=== PATIENT | female | born 1970 | race Caucasian/White ===

== ENCOUNTER 2021-02-06 11:17 | Emergency (ER) | payer OTHER, SELFPAY | END 2021-02-06 14:17 | disposition left against medical advice (07) | PROVIDERS: Emergency Provider Emergency Medicine; PCP Internal Medicine | DX: R68.89 Other general symptoms and signs (principal) ==

== ENCOUNTER 2021-02-07 08:40 | Outpatient (REF) | payer OTHER, SELFPAY ==
[2021-02-07 09:51] LABS: COVID-19 Test Positive (Negative); IDNOW Serial# 16C4AD1C
== END 2021-02-07 08:41 | disposition home or self-care (01) ==
LOC: HO.LAB 08:40
PROVIDERS: Visit Provider Internal Medicine
DX: Z20.822 Contact with and (suspected) exposure to COVID-19 (principal)
CPT/HCPCS: 36415; 87635; C9803

== ENCOUNTER 2022-03-14 08:53 | Emergency (ER) | payer OTHER, SELFPAY ==
--- NOTE | ~2022-03-14 | XR_ITS ---
EXAMINATION: XR CHEST CLINICAL INFORMATION: Cough, chest pain COMPARISON: X-ray 12/09/2017 TECHNIQUE: 2 views of the chest were obtained. FINDINGS: The cardiomediastinal silhouette is within normal limits. The lungs are well expanded. There are mild hazy opacities in the right lower lung. This could represent mild atelectasis or developing infiltrate. No dense consolidation otherwise. There is no edema, or effusion. No pneumothorax. No acute osseous abnormality. Thoracic spine degeneration XR/XR chest 2V IMPRESSION: Mild right basilar hazy opacity could represent atelectasis or developing infiltrate. Recommendation is for a follow-up chest series to be obtained following treatment and/or resolution of symptoms to assure resolution of this appearance.
--- NOTE | 2022-03-14 08:55 | ECG_ITS ---
Test Reason : cp Blood Pressure : / mmHG Vent. Rate : 061 BPM Atrial Rate : 061 BPM P-R Int : 132 ms QRS Dur : 082 ms QT Int : 410 ms P-R-T Axes : 047 006 022 degrees QTc Int : 412 ms Normal sinus rhythm Low voltage QRS Borderline ECG When compared with ECG of 09-DEC-2017 16:13, No significant change was found Referred By: Generic ED Physician Electronically Signed By:Chong Cha
[2022-03-14 08:59] VITALS: BP 155/72; PULSE 58; RESP 18; TEMP 36.1; O2SAT 95; BMI 37.8
[2022-03-14 09:40] LABS: IDNOW Serial# BCCEAD1C; Influenza A Negative (Negative); Influenza B2 Negative (Negative)
[2022-03-14 09:41] LABS: Alanine Aminotransferase 43 U/L (0-31); Albumin Level 4.6 g/dL (3.5-5.0); Alkaline Phosphatase 83 U/L (39-117); Anion Gap 14 (12-20); Aspartate Amino Transferase 55 U/L (5-31); Bilirubin Direct 0.3 mg/dL (0.0-0.5); Blood Urea Nitrogen 12 mg/dL (9-16); Calcium 9.5 mg/dL (8.4-10.2); Carbon Dioxide 27 mmol/L (22-29); Chloride 103 mmol/L (96-108); Creatinine Clr Calc Pharmacy 88.9; Estimated Glomerular Filt Rate > 60; Glucose Random 95 mg/dL (60-115); Potassium 4.2 mmol/L (3.3-5.1); Sodium 140 mmol/L (135-145); Total Protein 7.6 g/dL (6.5-8.0)
[2022-03-14 09:42] LABS: Troponin-I High Sensitivity 13.4 ng/L (<3.5-17.0)
[2022-03-14 10:52] VITALS: BP 152/87; PULSE 56; PULSE 57; RESP 16; O2SAT 98
--- NOTE | 2022-03-14 11:13 | PC.NURSE ---
Pt is alert/oriented. Reports cough since Friday, non productive however feels junky breathing even/unlabored. Skin PWD. NSR adolfo on tele. Speaking full sentences. Denies cp radiation and states pain worse with movement, pt relates pain to muscle. No injury/trauma. Unable to hold down much PO since Friday. Denies abd pain or diarrhea
[2022-03-14 11:14] LABS: MANUAL DIFF FLAG NO
[2022-03-14 11:19] LABS: Basophils Percent Auto 0.4 % (0-2); Eosinophils Percent Auto 0.7 % (0-4); Hematocrit 45.2 % (37.0-47.0); Hemoglobin 15.2 g/dl (12.0-16.0); Imm Gran Abs Auto 0.02 X10*3/uL (0.00-0.03); Imm Gran Pct Auto 0.4 % (0.0-0.4); Lymphocytes Absolute Auto 1.8 X10*3/uL (1.2-4.9); Lymphocytes Percent Auto 32.3 % (20-40); Mean Corpuscular HGB Conc 33.6 g/dl (31.0-35.0); Mean Corpuscular Hemoglobin 28.3 pg (27.0-33.0); Mean Corpuscular Volume 84.2 fL (80.0-98.0); Mean Platelet Volume 9.7 fL (9.4-12.3); Monocytes Absolute Auto 0.2 X10*3/uL (0.1-1.2); Monocytes Percent Auto 4.3 % (2-11); Neutrophils Absolute Auto 3.5 x10*3/uL (2.0-8.3); Neutrophils Percent Auto 61.9 % (45-73); Platelet Count 214 X10*3/uL (160-400); Red Blood Count 5.37 X10*6/uL (4.20-5.50); Red Cell Distribution Width 12.1 % (11.0-16.0); White Blood Count 5.6 X10*3/uL (4.8-10.8)
[2022-03-14 11:36] LABS: Troponin-I High Sensitivity 11.7 ng/L (<3.5-17.0)
--- NOTE | 2022-03-14 11:49 | ED_ITS ---
HPI - Chest Pain General Chief Complaint: Chest Pain Stated Complaint: N/V, CP Time Seen by Provider: 03/14/22 11:48 Source: patient Mode of arrival: ambulatory Limitations: no limitations History of Present Illness HPI narrative: 52-year-old female with no major medical problems presents with chest pain, cough, nausea and epigastric discomfort ongoing for the past 3 days. Symptoms have been intermittent. They are described as moderate in nature. Her chest pain started today in the left upper chest which described as still mild. The pain does not radiate. Not associated with exertion. Patient describes multiple episodes of nonbilious nonbloody emesis described as dry heaves. She has a constant dull ache in her epigastric area. That does not radiate. She did have a couple loose bowel movements but no significant diarrhea. No constipation. She denies any fevers or chills. She did have some home COVID test which were negative. She thinks she might have the flu. Related Data Previous Rx's Medication Instructions Recorded ondansetron 4 mg disintegrating 4 mg PO Q8H PRN nausea and 03/14/22 tablet vomiting #10 tabs pantoprazole 40 mg tablet,delayed 40 mg PO DAILY #10 tabs 03/14/22 release Allergies Allergy/AdvReac Type Severity Reaction Status Date / Time aspirin [ASPIRIN] Allergy Unknown UNKNOWN Verified 03/14/22 08:59 codeine [CODEINE] Allergy Unknown UNKNOWN Verified 03/14/22 08:59 levofloxacin [From LEVAQUIN] Allergy Unknown UNKNOWN Verified 03/14/22 08:59 Penicillins [PENICILLINS] Allergy Unknown UNKNOWN Verified 03/14/22 08:59 Motrin Allergy Unknown Hives Uncoded 03/14/22 08:59 Review of Systems Review of Systems: Yes all other systems are reviewed and are negative Constitutional: Constitutional: Reports no additional constitutional complaints Eyes: Eyes: Reports no additional eye complaints ENT: Reports system reviewed and no additional complaints, except as documented Cardiovascular: Cardiovascular: Reports chest pain Respiratory: Respiratory: Reports no additional respiratory complaints and Reports cough Gastrointestinal: Gastrointestinal: Reports abdominal pain, Reports dyspepsia and Reports loose stools Genitourinary: Genitourinary: Reports no additional female genitourinary complaints Musculoskeletal: Musculoskeletal: Reports no additional musculoskeletal com plaints Integumentary/Breasts: Skin/Breast: Reports system reviewed and no additional complaints, except as docu Neurologic: Reports system reviewed and no additional complaints, except as documented Psychiatric: Psychiatric: Reports no additional psychiatric complaints Endocrine: Endocrine: Reports no additional endocrine complaints Hematologic/Lymphatic: Hematologic/Lymphatic: Reports no additional hematologic/lymphatic complaints Allergic/Immunologic: Allergic/Immunologic: Reports no additional allergic/immunologic complaints [facility] Past Medical History Medical History No known health problems Social History Social History Smoked in Last 30 Days: No Use of substances other than those prescribed or required for medical reasons: No Advance Directives: No Advance Directives Information Provided: No Physical Exam Vital Signs: Vital Signs: Last Vital Signs Temp 97 F 03/14/22 08:59 Pulse 65 03/14/22 12:42 Resp 16 03/14/22 12:42 BP 151/77 H 03/14/22 12:42 Pulse Ox 96 03/14/22 12:42 O2 Del Method 03/14/22 12:42 BMI result Body Mass Index 37.8 HEENT: Head: Yes normal to inspection Ears: hearing grossly normal bila terally and external ears normal Face and sinus: Yes normal facial exam Eyes: General: appearance normal, both eyes and all related structures Neck: Neck: Yes full ROM Chest: Chest palpation & inspection: tenderness (Left upper chest) Resp: Effort & Inspection: normal respiratory effort Auscultation: clear to auscultation bilaterally Cardio: Rate: regular rate Rhythm: regular rhythm Heart sounds: S1 normal heart sound present and S2 normal heart sound present GI: Inspection: No distended Palpation (GI): Soft to palpation, nontender and no guarding Neuro: General: no focal motor deficits Extrem: General: Yes normal to inspection and No edema Psych: Mental Status: mental status grossly normal Course Course Course Narrative: 52-year-old female with no major medical problems presents with constellation of complaints of abdominal discomfort, nausea, vomiting, loose stools, cough in upper chest discomfort. Her examination was unremarkable with exception of reproducible tenderness left upper chest. She had no abdominal tenderness, rebound or guarding. She had negative Coker sign. With will order EKG, laboratory analysis, chest x-ray. She also will receive IV fluids, Zofran, famotidine, Tylenol. Will re-evaluate. Reevaluation(s) Reevaluation #1: Patient is doing better at this time. Discussed all results and discharge plan. Patient will start PPI antiemetics. She will follow up the primary care doctor as needed. She will return for any worsening or concerning symptoms. Time: 13:32 Medications Administered Discontinued Medications Generic Name Dose Route Start Last Admin Trade Name Catherine PRN Reason Stop Dose Admin Acetaminophen 975 mg 03/14/22 12:27 03/14/22 12:41 Acetaminophen 325 Mg Tablet PO 03/14/22 12:28 975 mg ONCE ONE Administration Famotidine 20 mg 03/14/22 11:57 03/14/22 12:38 Famotidine/Pf 20 Mg/2 Ml Vial IVPUSH 03/14/22 11:58 20 mg ONCE ONE Administration Sodium Chloride 500 mls @ 999 mls/hr 03/14/22 12:00 03/14/22 12:35 Ns IV 03/14/22 12:30 999 mls/hr .Q31M TIFFANY Administration Ondansetron HCl 4 mg 03/14/22 11:57 03/14/22 12:37 Ondansetron Hcl 4 Mg/2 Ml Vial IVPUSH 03/14/22 11:58 4 mg ONCE ONE Administration Medical Decision Making Medical Decision Making MDM Narrative: 52-year-old female presenting with chest discomfort abdominal discomfort, nausea vomiting. Examination revealed left upper chest wall tenderness otherwise was unremarkable. EKG was nonischemic in nature had nonspecific T-wave changes. W ill order chest x-ray, laboratory analysis and analgesics as well as antiemetics and re-evaluate. Differential Diagnosis Differential Diagnoses: The differential diagnosis associated with the presentation includes (Viral syndrome, COVID, flu, dyspepsia, GERD, Fani- Gramajo, musculoskeletal chest pain) Nausea and vomiting, musculoskeletal chest pain Admission/Observation Consideration of admission/observation: Escalation of care including admission/observation considered Lab Data MDM Lab Attestation statement: I reviewed the patient's lab results. 03/14/22 11:11 03/14/22 09:09 Labs: Lab Results 03/14/22 03/14/22 03/14/22 Range/Units 09:09 09:09 09:09 WBC (4.8-10.8) X10*3/uL RBC (4.20-5.50) X10*6/uL Hgb (12.0-16.0) g/dl Hct (37.0-47.0) % MCV (80.0-98.0) fL MCH (27.0-33.0) pg MCHC (31.0-35.0) g/dl RDW (11.0-16.0) % Plt Count (160-400) X10*3/uL MPV (9.4-12.3) fL Immature Gran % (Auto) (0.0-0.4) % Neut % (Auto) (45-73) % Lymph % (Auto) (20-40) % [place] % (Auto) (2-11) % Eos % (Auto) (0-4) % Baso % (Auto) (0-2) % Lymph # (Auto) (1.2-4.9) X10*3/uL [place] # (Auto) (0.1-1.2) X10*3/uL Eos # (Auto) (0.0-0.4) X10*3/uL Baso # (Auto) (0.0-0.2) X10*3/uL Abs Immat Gran (auto) (0.00-0.03) X10*3/uL Absolute Neuts (auto) (2.0-8.3) x10*3/uL Absolute Nucleated RBC (0.0-0.012) X10*3/uL Nucleated RBC % (auto) (0.0-0.2) /100WBC Sodium 140 (135-145) mmol/L Potassium 4.2 (3.3-5.1) mmol/L Chloride 103 (96-108) mmol/L Carbon Dioxide 27 (22-29) mmol/L Anion Gap 14 (12-20) BUN 12 (9-16) mg/dL Creatinine 0.83 (0.5-1.4) mg/dL Estim Creat Clear Calc 88.9 Estimated GFR > 60 Random Glucose 95 (60-115) mg/dL Calcium 9.5 (8.4-10.2) mg/dL Total Bilirubin 1.0 (0.0-1.0) mg/dL Direct Bilirubin 0.3 (0.0-0.5) mg/dL AST 55 H (5-31) U/L ALT 43 H (0-31) U/L Alkaline Phosphatase 83 (39-117) U/L Troponin I High Sens (<3.5-17.0) ng/L Total Protein 7.6 (6.5-8.0) g/dL Albumin 4.6 (3.5-5.0) g/dL Hold Green Top See Note Influenza Type A (SHAREE) Negative (Negative) Influenza Type B (SHAREE) Negative (Negative) Influenza A & B Note See Note 03/14/22 03/14/22 03/14/22 Range/Units 09:09 11:11 11:11 WBC 5.6 (4.8-10.8) X10*3/uL RBC 5.37 (4.20-5.50) X10*6/uL Hgb 15.2 (12.0-16.0) g/dl Hct 45.2 (37.0-47.0) % MCV 84.2 (80.0-98.0) fL MCH 28.3 (27.0-33.0) pg MCHC 33.6 (31.0-35.0) g/dl RDW 12.1 (11.0-16.0) % Plt Count 214 (160-400) X10*3/uL MPV 9.7 (9.4-12.3) fL Immature Gran % (Auto) 0.4 (0.0-0.4) % Neut % (Auto) 61.9 (45-73) % Lymph % (Auto) 32.3 (20-40) % [place] % (Auto) 4.3 (2-11) % Eos % (Auto) 0.7 (0-4) % Baso % (Auto) 0.4 (0-2) % Lymph # (Auto) 1.8 (1.2-4.9) X10*3/uL [place] # (Auto) 0.2 (0.1-1.2) X10*3/uL Eos # (Auto) 0.0 (0.0-0.4) X10*3/uL Baso # (Auto) 0.0 (0.0-0.2) X10*3/uL Abs Immat Gran (auto) 0.02 (0.00-0.03) X10*3/uL Absolute Neuts (auto) 3.5 (2.0-8.3) x10*3/uL Absolute Nucleated RBC 0.000 (0.0-0.012) X10*3/uL Nucleated RBC % (auto) 0.0 (0.0-0.2) /100WBC Sodium (135-145) mmol/L Potassium (3.3-5.1) mmol/L Chloride (96-108) mmol/L Carbon Dioxide (22-29) mmol/L Anion Gap (12-20) BUN (9-16) mg/dL Creatinine (0.5-1.4) mg/dL Estim Creat Clear Calc Estimated GFR Random Glucose (60-115) mg/dL Calcium (8.4-10.2) mg/dL Total Bilirubin (0.0-1.0) mg/dL Direct Bilirubin (0.0-0.5) mg/dL AST (5-31) U/L ALT (0-31) U/L Alkaline Phosphatase (39-117) U/L Troponin I High Sens 13.4 11.7 (<3.5-17.0) ng/L Total Protein (6.5-8.0) g/dL Albumin (3.5-5.0) g/dL Hold Green Top Influenza Type A (SHAREE) (Negative) Influenza Type B (SHAREE) (Negative) Influenza A & B Note Independent Interpretation I performed an independent interpretation of an: EKG (Normal sinus rhythm heart rate 61, normal intervals, no acute ST elevations or depressions, nonspecific T- wave changes noted. No comparison.) and Plain X-Ray (Chest x-ray no acute cardiopulmonary disease) External Record Review No records available in EMR Prescription Management I considered prescription management with: Pain Medication Discharge Plan Discharge Clinical Impression: Chest pain, Nausea & vomiting, Dyspepsia Patient Disposition: Home, Self-Care Instructions: Chest Pain (DC), Epigastric Pain (ED), Chest Wall Pain (ED) Additional Instructions: You are evaluated in the emergency department for nausea vomiting, abdominal discomfort in the epigastric area as well as upper chest pain. Your upper chest pain appears to be musculoskeletal in nature. Her cardiac workup was negative. However, should her chest pain change in any way, associated with exertion or any other concerning symptoms, follow up in the emergency department immediately for re-evaluation. Your epigastric discomfort could certainly be gastritis, reflux disease. Will start on a proton pump inhibitor to reduce her acid secretion. He may take that daily. In addition you can take the ondansetron sublingually every 8 hours as needed for nausea. Follow-up with your primary care provider in 1-2 weeks for continued symptomatology Prescriptions: New ondansetron 4 mg tablet,disintegrating 4 mg PO Q8H PRN (Reason: nausea and vomiting) Qty: 10 0RF pantoprazole 40 mg tablet,delayed release (DR/EC) 40 mg PO DAILY Qty: 10 0RF Referrals: Demi Rosado NP [Primary Care Provider] -
[2022-03-14] MEDS: 0.9 % Sodium Chloride 500 ML 999 ML IV (12:35)
[2022-03-14] MEDS: ondansetron HCL 4 MG/2 ML VIAL IVPUSH (12:37)
[2022-03-14] MEDS: Famotidine/PF 20 MG/2 ML VIAL IVPUSH (12:38)
[2022-03-14] MEDS: Acetaminophen 325 MG TABLET 975 MG PO (12:41)
[2022-03-14 12:42] VITALS: BP 151/77; PULSE 65; RESP 16; O2SAT 96
== END 2022-03-14 14:02 | disposition home or self-care (01) ==
PROVIDERS: Physician Assistant Medical; Emergency Provider Emergency Medicine; PCP Nurse Practitioner Pediatrics
DX: R07.9 Chest pain, unspecified (principal); R10.13 Epigastric pain; R11.2 Nausea with vomiting, unspecified; Z20.828 Contact with and (suspected) exposure to other viral communicable diseases
CPT/HCPCS: 36415; 71046; 80048; 80076; 84484; 85025; 87502; 93005; 96374; 96375; 99284; 99285; J2405

== ENCOUNTER 2024-06-30 02:48 | Emergency (ER) | payer OTHER, SELFPAY ==
--- NOTE | ~2024-06-30 | CT_ITS ---
CLINICAL HISTORY: Right flank pain CT abdomen and pelvis without contrast Comparison: None Findings: The lung bases are clear. Small hiatal hernia noted. The liver, gallbladder, spleen, adrenal glands and pancreas are unremarkable. No urinary calculus or obstructive uropathy. The bladder is partially distended. No focal abnormality. There is no bowel obstruction, free air, free fluid, abscess or adenopathy. Normal appendix. No pelvic mass. No acute osseous finding. Impression: There is no urinary calculus or obstructive uropathy. No acute process identified. This document has been electronically signed by: Zeeshan Sumner MD on 06/30/2024 05:58:32
[2024-06-30 02:53] VITALS: BP 173/83; PULSE 69; RESP 20; TEMP 36.6; O2SAT 97; BMI 41.2
--- NOTE | 2024-06-30 03:50 | ED_ITS ---
HPI - General Adult General Chief complaint: Back Pain/Injury Stated complaint: lower right back pain Time Seen by Provider: 06/30/24 03:50 History of Present Illness ED Provider: Zeny DELGADO narrative: The patient is a 54-year-old female who says that she has been having right lower back pain getting worse over the last 3 days. She has never had pain like this before she says. Tonight the pain seemed significantly worse and associated with nausea and had 1 episode of vomiting. She denies any injuries. She denies any urinary symptoms. No pain with urination, frequency, or urgency. She has no history of kidney stones. She says the pain is not necessarily associated with movements or position changes. Related Data Previous Rx's ?Medication ?Instructions ?Recorded ondansetron 4 mg disintegrating 4 mg PO Q8H PRN nausea and 03/14/22 tablet vomiting #10 tabs pantoprazole 40 mg tablet,delayed 40 mg PO DAILY #10 tabs 03/14/22 release ondansetron 4 mg disintegrating 4 mg PO Q6H PRN nausea and 06/30/24 tablet vomiting #10 tabs Allergies Allergy/AdvReac Type Severity Reaction Status Date / Time aspirin [ASPIRIN] Allergy Unknown UNKNOWN Verified 06/30/24 02:55 codeine [CODEINE] Allergy Unknown UNKNOWN Verified 06/30/24 02:55 levofloxacin [From LEVAQUIN] Allergy Unknown UNKNOWN Verified 06/30/24 02:55 Penicillins [PENICILLINS] Allergy Unknown UNKNOWN Verified 06/30/24 02:55 Motrin Allergy Unknown Hives Uncoded 03/14/22 08:59 Review of Systems 2 Review of Systems: Yes all other systems are reviewed and are negative [facility] Past Medical History Medical History No known health problems Social History Social History Smoked in Last 30 Days: No Use of substances other than those prescribed or required for medical reasons: No Advance Directives: No Patient : No Physical Exam ED Vital Signs: Vital Signs - 24 hr 06/30/24 02:53 06/30/24 05:50 Temperature 97.9 F 98.0 F Pulse Rate 69 64 Respiratory Rate 20 14 Blood Pressure 173/83 H 124/54 L Pulse Oximetry 97 96 Oxygen Delivery Method Room Air Room Air BMI result Body Mass Index 41.2 Const Other: The patient is awake and alert. She was moaning and said that she was in a great deal of discomfort. Orientation/consciousness: patient oriented x3 HENMT Other: Face is symmetrical. Mucous membranes are moist. No abnormalities seemed to the face. Eyes General: appearance normal, both eyes and all related structures Sclerae: sclerae normal Neck Neck: Yes normal visual inspection and Yes full ROM Resp Effort & Inspection: normal respiratory effort Auscultation: clear to auscultation bilaterally Cardio Rate: regular rate Rhythm: regular rhythm Heart sounds: S1 normal heart sound present and S2 normal heart sound present GI Other: The abdomen is soft and nontender Back/Spine/Pelvis Other: I felt there was right-sided CVA percussion tenderness Skin Other: Skin is dry and unremarkable Neuro General: patient oriented x3, gait normal, tone normal, moves all extremities, no focal motor deficits and CN's II-XI intact bilaterally Extrem Other: No peripheral edema. No calf swelling or tenderness. Medications Administered Generic Name Dose Route Start Last Admin Trade Name Freq PRN Reason Stop Dose Admin Sodium Chloride 1,000 mls @ 999 mls/hr 06/30/24 06:00 06/30/24 05:55 Ns IV 06/30/24 07:00 999 mls/hr .Q1H1M TIFFANY Administration Discontinued Medications Generic Name Dose Route Start Last Admin Trade Name Freq PRN Reason Stop Dose Admin Droperidol 1.25 mg 06/30/24 04:04 06/30/24 05:16 Droperidol 5 Mg/2 Ml Vial IVPUSH 06/30/24 04:05 1.25 mg ONCE ONE Administration Acetaminophen 1,000 mg in 100 mls @ 400 mls/hr 06/30/24 03:56 06/30/24 05:31 Ofirmev IV 06/30/24 04:10 Infused ONCE ONE Infusion Medical Decision Making Medical Decision Making [facility] Narrative: The patient is a 54-year-old woman who presents for evaluation of right low back pain that has been bothering her for about 3 days. She denies any associated urinary symptoms. She says the pain does not radiate down her leg. She says that she has had some nausea and vomiting. On physical exam I thought she had right-sided CVA percussion tenderness. Her exam was otherwise unremarkable. A CT scan of the abdomen and pelvis shows no acute findings and no acute ureteral stones to account for the patient's pain. The patient had a urinalysis that was mildly suggestive of a possible UTI but the patient denies any symptoms of a bladder infection. She has a normal white count of 7.2 with a an unremarkable differential. CRP is 0.43. The patient does not wish to have any opioids for pain management because she says she has a history of addiction. She says that she is allergic to all NSAIDs. The patient was given a dose of IV acetaminophen and a dose of IV droperidol as well as IV fluids. She seemed to feel considerably better. Given the absence of any concerning findings on her emergency room workup I think she may be discharged. She says that she already has a muscle relaxant medication at home. I will prescribe ondansetron. She was given a work note. She will therefore use acetaminophen and her muscle relaxant as needed for pain with ondansetron as needed for any nausea. She should follow up with her PCP. She should return if worse. Lab Data 06/30/24 04:25 06/30/24 04:25 Labs: Lab Results 06/30/24 06/30/24 Range/Units 04:25 05:22 WBC 7.2 (4.8-10.8) X10*3/uL RBC 5.18 (4.20-5.50) X10*6/uL Hgb 14.9 (12.0-16.0) g/dl Hct 44.0 (37.0-47.0) % MCV 84.9 (80.0-98.0) fL MCH 28.8 (27.0-33.0) pg MCHC 33.9 (31.0-35.0) g/dl RDW 13.0 (11.0-16.0) % Plt Count 244 (160-400) X10*3/uL MPV 10.4 (9.4-12.3) fL Immature Gran % (Auto) 0.3 (0.0-0.4) % Neut % (Auto) 73.7 H (45-73) % Lymph % (Auto) 19.3 L (20-40) % [place] % (Auto) 4.3 (2-11) % Eos % (Auto) 1.8 (0-4) % Baso % (Auto) 0.6 (0-2) % Lymph # (Auto) 1.4 (1.2-4.9) X10*3/uL [place] # (Auto) 0.3 (0.1-1.2) X10*3/uL Eos # (Auto) 0.1 (0.0-0.4) X10*3/uL Baso # (Auto) 0.0 (0.0-0.2) X10*3/uL Abs Immat Gran (auto) 0.02 (0.00-0.03) X10*3/uL Absolute Neuts (auto) 5.3 (2.0-8.3) x10*3/uL Absolute Nucleated RBC 0.000 (0.0-0.012) X10*3/uL Nucleated RBC % (auto) 0.0 (0.0-0.2) /100WBC Sodium 140 (135-145) mmol/L Potassium 4.1 (3.3-5.1) mmol/L Chloride 106 (96-108) mmol/L Carbon Dioxide 23 (22-29) mmol/L Anion Gap 15 (12-20) BUN 16 (9-16) mg/dL Creatinine 0.79 (0.5-1.4) mg/dL Estim Creat Clear Calc 95.8 Estimated GFR > 60 Random Glucose 107 (60-115) mg/dL Calcium 9.6 (8.4-10.2) mg/dL Total Bilirubin 0.4 (0.0-1.0) mg/dL Direct Bilirubin 0.1 (0.0-0.5) mg/dL AST 32 H (5-31) U/L ALT 20 (0-31) U/L Alkaline Phosphatase 84 (39-117) U/L C-Reactive Protein 0.43 (< or = 0.50) mg/dL Total Protein 7.7 (6.5-8.0) g/dL Albumin 4.5 (3.5-5.0) g/dL Urine Color Yellow Urine Appearance Clear Urine pH 7.0 (5.0-9.0) Ur Specific Ione 1.025 (1.005-1.025) Urine Protein Trace (Neg-Trace) mg/dL Urine Glucose (UA) Negative (Negative) mg/dL Urine Ketones Negative (Negative) mg/dL Urine Blood Trace H (Negative) Urine Nitrite Negative (Negative) Ur Leukocyte Esterase Small (1+) H (Negative) Urine RBC 3-5 H (0-2) /HPF Urine WBC 6-10 H (0-5) /HPF Ur Squamous Epith Cells 11-20 (0-2) /HPF Urine Bacteria 2+ (None Seen) Hyaline Casts 0-2 (0-2) /LPF Discharge Plan Discharge Clinical Impression: Acute right-sided back pain Patient Disposition: Home, Self-Care Additional Instructions: Your CAT scan does not show any concerning findings to explain your pain. You do not seem to have any kidney stones. Your urine test is possibly slightly indicative of a urinary tract infection but since you do not have any symptoms of a urinary tract infection such as burning when you urinate or a significant increase in your urinary frequency or urgency I think it is probably unlikely you have a urinary tract infection. However a culture will be sent up for your urine sample today. If the culture is positive you should receive a call from the hospital and be started on antibiotics. I have sent a prescription for ondansetron to your pharmacy which you may use as needed for nausea. You may use acetaminophen (Tylenol) as needed for pain and the muscle relaxant you have at home. Please plan on following up with your regular doctor to discuss this episode further. Return to the emergency room if you feel significantly worse. Prescriptions: New ondansetron 4 mg tablet,disintegrating 4 mg PO Q6H PRN (Reason: nausea and vomiting) Qty: 10 0RF No Action ondansetron 4 mg tablet,disintegrating 4 mg PO Q8H PRN (Reason: nausea and vomiting) Qty: 10 0RF pantoprazole 40 mg tablet,delayed release (DR/EC) 40 mg PO DAILY Qty: 10 0RF Referrals: Arslan Coleman MD [Primary Care Provider] - (Right-sided back pain) Stand Alone Forms: Work/School Release Print Language: Hebrew
[2024-06-30 04:30] LABS: Basophils Percent Auto 0.6 % (0-2); Eosinophils Absolute Auto 0.1 X10*3/uL (0.0-0.4); Eosinophils Percent Auto 1.8 % (0-4); Hemoglobin 14.9 g/dl (12.0-16.0); Imm Gran Abs Auto 0.02 X10*3/uL (0.00-0.03); Imm Gran Pct Auto 0.3 % (0.0-0.4); Lymphocytes Absolute Auto 1.4 X10*3/uL (1.2-4.9); Lymphocytes Percent Auto 19.3 % (20-40); MANUAL DIFF FLAG NO; Mean Corpuscular HGB Conc 33.9 g/dl (31.0-35.0); Mean Corpuscular Hemoglobin 28.8 pg (27.0-33.0); Mean Corpuscular Volume 84.9 fL (80.0-98.0); Mean Platelet Volume 10.4 fL (9.4-12.3); Monocytes Absolute Auto 0.3 X10*3/uL (0.1-1.2); Monocytes Percent Auto 4.3 % (2-11); Neutrophils Absolute Auto 5.3 x10*3/uL (2.0-8.3); Neutrophils Percent Auto 73.7 % (45-73); Platelet Count 244 X10*3/uL (160-400); Red Blood Count 5.18 X10*6/uL (4.20-5.50); White Blood Count 7.2 X10*3/uL (4.8-10.8)
--- NOTE | 2024-06-30 04:45 | PC.NURSE ---
Four failed attempts at obtaining an IV line by to different nurses. MD made aware and will attempt an U/S guided line.
[2024-06-30 04:57] LABS: Alanine Aminotransferase 20 U/L (0-31); Albumin Level 4.5 g/dL (3.5-5.0); Anion Gap 15 (12-20); Aspartate Amino Transferase 32 U/L (5-31); Bilirubin Direct 0.1 mg/dL (0.0-0.5); Bilirubin Total 0.4 mg/dL (0.0-1.0); Blood Urea Nitrogen 16 mg/dL (9-16); Calcium 9.6 mg/dL (8.4-10.2); Carbon Dioxide 23 mmol/L (22-29); Chloride 106 mmol/L (96-108); Creatinine Clr Calc Pharmacy 95.8; Estimated Glomerular Filt Rate > 60; Glucose Random 107 mg/dL (60-115); Potassium 4.1 mmol/L (3.3-5.1); Sodium 140 mmol/L (135-145); Total Protein 7.7 g/dL (6.5-8.0)
[2024-06-30 05:03] LABS: Alkaline Phosphatase 84 U/L (39-117)
[2024-06-30] MEDS: droPERidol 5 MG/2 ML VIAL 1.25 MG IVPUSH (05:16)
[2024-06-30] MEDS: Acetaminophen 1,000 MG/100 ML PIGGYBACK 400 MG IV (05:16)
[2024-06-30 05:19] LABS: C Reactive Protein 0.43 mg/dL (< or = 0.50)
[2024-06-30 05:32] LABS: Appearance Urine Clear; Color Urine Yellow; Glucose Urine UA Negative (Negative); Leukocyte Esterase Urine Small (1+) (Negative); Nitrite Urine Negative (Negative); Specific Gravity - Urine 1.025 (1.005-1.025); UMIC TRIGGER UACC YES; Urine Blood Trace (Negative); Urine Ketones Negative (Negative); Urine Protein Trace mg/dL (Neg-Trace)
[2024-06-30 05:34] LABS: Bacteria Urine 2+ (None Seen); Hyaline Casts Urine 0-2 /LPF (0-2); UACC Culture Trigger YES
[2024-06-30 05:50] VITALS: BP 124/54; PULSE 64; RESP 14; TEMP 36.7; O2SAT 96
[2024-06-30] MEDS: 0.9 % Sodium Chloride 1,000 ML 999 ML IV (05:55)
[2024-06-30 06:59] VITALS: BP 124/54; PULSE 64; RESP 14; TEMP 36.7; O2SAT 96
== END 2024-06-30 06:59 | disposition home or self-care (01) ==
PROVIDERS: Emergency Provider Emergency Medicine; PCP Family Medicine
DX: M54.50 Low back pain, unspecified (principal); R11.0 Nausea; R10.2 Pelvic and perineal pain; Z79.899 Other long term (current) drug therapy
CPT/HCPCS: 36415; 74176; 80048; 80076; 81001; 85025; 86140; 87086; 96361; 96374; 96375; 99284; 99285; J0131; J1790

== ENCOUNTER → 2024-06-30 05:24 | Outpatient (BNV) | payer OTHER, SELFPAY | PROVIDERS: Emergency Provider Emergency Medicine; PCP Family Medicine; Visit Provider Radiology Vascular & Interventional Radiology | DX: R10.813 Right lower quadrant abdominal tenderness (principal) | CPT/HCPCS: 74176 ==

== ENCOUNTER 2024-07-06 05:49 | Emergency (ER) | payer OTHER, SELFPAY ==
--- NOTE | ~2024-07-06 | CT_ITS ---
EXAMINATION: CT ABDOMEN AND PELVIS WITHOUT CONTRAST CLINICAL INFORMATION: Right flank pain. COMPARISON: June 30, 2024 TECHNIQUE: Multidetector volumetric imaging was performed from the superior aspect of the liver through the pubic symphysis. Sagittal and coronal reformatted images were obtained on the technologist's workstation. This CT examination was performed using dose optimization techniques as appropriate, variously including the following: *Automated exposure control *Adjustment of mA and/or kV according to patient size (this includes techniques or standardized protocols for targeted exams where dose is matched to indication/reason for exam; i.e. extremities or head) *Use of iterative reconstruction technique DLP: 819 mGy centimeter. FINDINGS: Inadequate evaluation of the intra-abdominal organs and vascular structures due to lack of IV contrast. LUNG BASES: No acute airspace disease. LIVER, GALLBLADDER, AND BILIARY TREE: Liver measures 16 cm. No pericholecystic fluid collection or gallbladder wall thickening. Questionable intraluminal hyperdensity. No intrahepatic or extrahepatic biliary ductal dilatation. PANCREAS: No peripancreatic fluid collection. No main pancreatic ductal dilatation. SPLEEN: 8 cm. ADRENAL GLANDS: No nodular lesion. KIDNEYS AND URETERS: No hydronephrosis. No nephrolithiasis. No dilatation of the ureters. BLADDER: Fluid-filled. GASTROINTESTINAL TRACT: Appendix is short and normal. No intestinal obstruction pattern. Collapsed appearance of the left hemicolon. No ascites. No pneumoperitoneum. No gross intestinal wall thickening. Small hiatal hernia.. ABDOMINAL WALL: Diastases abdominal rectus muscles in the periumbilical region. LYMPH NODES: Mild prominent, nonspecific mesenteric and retroperitoneum. VASCULAR: No aneurysm, abdominal aorta. PELVIC VISCERA: Inadequate evaluation. Absent uterus. OSSEOUS STRUCTURES: Mild multilevel thoracolumbar spondylosis. No acute fracture or gross listhesis. Desiccation centimeter the greater trochanters of the femurs, bilaterally. CT/CT abdomen pelvis wo IV con IMPRESSION: No hydronephrosis or nephrolithiasis. Collapsed appearance of the left hemicolon. Fleischner guidelines were followed. Electronically signed by: Alton Olson MD 07/06/2024 10:00 AM EDT
[2024-07-06 05:56] VITALS: BP 151/68; PULSE 60; RESP 16; TEMP 36.5; O2SAT 97; BMI 37.8
--- OUTSIDE RECORDS SUMMARY | 2024-07-06 06:16 | XMS_ITS | Clinical Summary ---
Author Organization [address] [facility] Address [address] [place] [address] Phone Care Team Providers Care Sports Management Intern Name Role Phone Arslan Coleman MD Primary Care Pr ovider Allergies Active Allergy Reactions Criticality Noted Date Comments Aspirin 07/17/2005 Other Reaction(s): Hives/Urticaria Codeine 07/17/2005 Ibuprofen 07/17/2005 Other Reaction(s): Hives/Urticaria Levofloxacin 01/25/2014 nausea Penicillin 04/28/2015 Penicillins 07/17/2005 Medications furosemide (LASIX) 20 mg tablet Take 1 tablet (20 mg total) by mouth 1 (one) time each day. 90 tablet 1 5 Active phentermine 15 mg capsuleIndicatio ns:Class 2 obesity due to excess calories without serious comorbidity with body mass index (BMI) of 39.0 to 39.9 in adult Take 1 capsule (15 mg total) by mouth 1 (one) time each day before breakfast. Max Daily Amount: 15 mg 30 each 1 5 Active buPROPion XL (WELLBUTRIN XL) 150 mg 24 hr tablet Take 1 tablet (150 mg total) by mouth 1 (one) time each day. Do not crush, chew, or split. 30 each 5 Active fezolinetant (Veozah) 45 mg tablet Take 1 tablet by mouth 1 (one) time each day. 90 tablet 5 09/27/19 25 Active tirzepatide, weight loss, (Zepbound) 2.5 mg/0.5 mL solution Inject 2.5 mg under the skin every 7 (seven) days for 28 days. 2 mL 5 07/27/19 25 Active fezolinetant (Veozah) 45 mg tablet Take 1 tablet by mouth 1 (one) time each day. 90 tablet 5 06/27/19 25 Discontinue d(Reorder) naltrexone (DEPADE) 50 mg tablet Take 0.5 tablets (25 mg total) by mouth 1 (one) time each day. 15 each 5 06/25/19 25 Active Problems Problem Noted Date Diagnosed Date Venous insufficiency of both lower extremities 1 02/22/2023 Severe obesity (BMI 35.0-35. 9 with comorbidity) (CMS/HCC V24, CMS/HCC V28) 11/24/2023 Skin mole 11/14/2023 Varicose veins of both legs with edema Mild depression 11/14/2023 Adhesive capsulitis of left shoulder 11/14/2023 Vasomotor symptoms due to menopause 10/02/2023 Overview (11/24/2023): Last Assessment & Plan: Counseled the patient re: options for non-hormonal treatment of vasomotor sx. Discussed option for Paxil. Discussed newer non-hormonal option Veozah. I explained it is a relatively new medication and thus does not have long-term safety data. However, the literature I have read, suggests it is overall safe. Most common SE is abdominal pain, diarrhea, insomnia, but uncommon overall. Can cause elevated transaminases and thus it is recommended that these be tested to ensure normal before starting and monitored at 3, 6, 9, 12 months after starting. I also discussed that the cost may be prohibitive due to newness. May require a PA and take time to be approved. She voiced understanding of my counseling and desired to start Veozah. She will have labs today and start if normal. Unilateral agenesis of kidney 12/27/2022 Overview (11/24/2023): Born with one and a quarter kidneys - LEFT is smaller Abnormal uterine bleeding (AUB) 11/14/2015 Pap smear abnormality of cervix 09/01/2014 Overview (11/24/2023): History: PAP 08/05/14: LSIL; High Risk HPV DNA negative Colposcopy 09/16/2014: No disease seen on the cervix; biopsy not deemed warranted. Hyperlipidemia 01/25/2014 Simple goiter 01/25/2014 History of substance abuse ([facility] V24, [facility] V28) 01/25/2014 Overview (11/24/2023): Opioids/ in patient psych Adame Coamo 04/15/2011 Vitamin D deficiency 01/25/2014 Multiple thyroid nodules 01/25/2014 Neck pain 12/03/2013 Overview (11/24/2023): Cervical spondylosis/Dr Bradley ASCUS with positive high risk HPV cervical 08/06 Overview (06/28/2024): Referred for Colpo Genital HSV 07/24/2012 Encounters Date Type Department Care Team Description 06/25/2024 12:15 PM EDT Lab Draw Station - [address] [phone] Medication monitoring encounter; Vitamin D deficiency 05/25/2024 8:00 AM EDT Office Visit Bariatric Surgery - [place] [facility] [address] [place] [address] Sky Peck MD Class 2 obesity due to excess calories without serious comorbidity with body mass index (BMI) of 39.0 to 39.9 in adult (Primary Dx) 04/30/2024 3:00 PM EDT Consult Vascular Surgery - [place] [address] [facility] [address] [place] [address] Dot Rowe PA Varicose veins of leg with swelling, bilateral (Primary Dx); Venous insufficiency of both lower extremities 04/16/2024 11:00 AM EST Office Visit Walk-In Clinic - [facility] [address] [place] [address] Papa Calle, CHIEF DEPUTY SHERIFF Benign paroxysmal positional vertigo, unspecified laterality (Primary Dx) 04/14/2024 Nurse Triage Adult Medicine [address] [phone] Arslan Coleman MD Dizziness from Last 3 Months Immunizations Name Administration Dates Next Due Influenza Quadravalent, MDCK , 0.5ml, preservative free (Flucelvax) 6mo and older 11/13/2020 Influenza trivalent, 0.5mL, preservative free (Fluarix; FluLaval; Fluzone) ages 6mo and older (Afluria) 3 years and older 10/12/2023,12/15/2022,12/16/2021,2014 Influenza, Unspecified 11/26/2015 Tdap Tetanus diptheria acell ular pertussis (Boostrix; Adacel) 7yo and older 08/05/2014 Surgical History Surgery Date Site/Laterality Comments SECTION PROCEDURE: AR DELIVERY ONLY; COMMENT: times 3 TONSILLECTOMY age 5 PROCEDURE: HISTORICAL TONSILLECTOMY HERNIA REPAIR Left PROCEDURE: HISTORICAL HERNIA REPAIR/ING; COMMENT: age 21 HYSTERECTOMY 12/12/2015 PROCEDURE: HISTORICAL HYSTERECTOMY; COMMENT: adenomyosis/fibroid/adhesive; BOTH OVARIES REMAIN Medical History Medical History Date Comments HSV (herpes simplex virus) infection 2011 DX:HSV (herpes simplex virus) infection; COMMENT: IGG type 1 and 2 Genital HSV 07/24/2012 DX:Genital HSV Bipolar 1 disorder ([facility] V24, [facility] V28) 01/25/2014 DX:Bipolar 1 disorder ([facility]) Esophageal reflux 01/25/2014 DX:Esophageal reflux Hyperlipidemia 01/25/2014 DX:Hyperlipidemi a Simple goiter 01/25/2014 DX:Simple goiter History of substance abuse ( [facility] V24, [facility] V28) 01/25/2014 DX:History of substance abus e ([facility]); COMMENT: Opioids/ in patient psych Wendi Luna 04/15/2011 Vitamin D deficiency 01/25/2014 DX:Vitamin D deficiency Pap smear abnormality of cervix 09/01/2014 DX:Pap smear abnormality of cervix Cervicalgia 08/09/2016 DX:Cervicalgia Uterine leiomyoma 11/14/2015 DX:Uterine lei omyoma Family History Medical History Relation Name Comments Lung cancer Father EtOH Nicotine Dependence Father Stroke Maternal Grandfather Brain cancer Maternal Grandmother obese Lung cancer Mother colon polyps, H [place], HLD Nicotine Dependence Mother Alzheimer's disease Paternal Grandfather Colon cancer Uncle paternal Breast cancer Neg Hx Ovarian cancer Neg Hx Relation Name Status Comments Father Maternal Grandfather Maternal Grandmother Mother Paternal Grandfather Paternal Grandmother Sister x 1 Alive Uncle paternal Other Social History Tobacco Use Types Packs/Day Years Used Date Smoking Tobacco: Never Smokeless Tobacco: Never Tobacco Cessation:Counseling Given: Not Answered Alcohol Use Standard Drinks/Week Comments Not Currently 0 (1 standard drink = 0.6 oz pur e alcohol) Housing Instability Answer Date Recorde d Are you worried that in the next 2 months you may not have stable housing? No 01/27/2024 Food Access & Nutrition Answer Date Rec orded Do you have access to a vari ety of food including fruits and vegetables? Yes 01/27/2024 Access to Healthcare Answer Date Record ed Within the last 3 months, ho w many times did you visit the emergency department for your medical care? 0 01/27/2024 Health Literacy Answer Date Recorded How often do you need to hav e someone help you when you read instructions, pamphlets, or other written material from your doctor or pharmacy? Never 01/27/2024 Caregiver: How often do you need to have someone help you when you read instructions, pamphlets, or other written material from your doctor or pharmacy? Not on file 01/27/2024 Financial Risk Answer Date Recorded How hard is it for you to pa y for the very basics like food, housing, medical care, and air conditioning / heating? Somewhat hard 01/27/2024 Transportation Answer Date Recorded Has the lack of transportati on kept you from meetings, work, or from getting things needed for daily living? No Has the lack of transportati on kept you from medical appointments or from getting medications? No 01/27/2024 Social Isolation Answer Date Recorded How often do you feel lonely or isolated from th ose around you? Never 01/27/2024 Food Risk Answer Date Recorded Within the past 12 months we worried whether our food would run out before we got money to buy more. Never true 01/27/2024 Within the past 12 months th e food we bought just didn't last and we didn't have money to get more. Never true 01/27/2024 Dependent Care Answer Date Recorded Do you need help finding or paying for care for your loved ones. For example, vocational childcare teacher or elderly care for an older adult? No 01/27/2024 Education Answer Date Recorded Do you think completing more education or training, like finishing a GED, going to college, or learning a trade, would be helpful for you? No 01/27/2024 Employment and Income Answer Date Recor ded During the last four weeks, have you been actively looking for work? No 01/27/2024 Living Situation Answer Date Recorded What is your living situation? 1 03/29/2023 Comments No Sex and Gender Information Value Date Recorded Sex Assigned at Not on file Legal Sex Female 1:29 AM EST Gender Identity Not on file Sexual Orientation Not on file Obstetrics History Para Term AB IAB SAB Ectopic Multiple Livin g Live Births 3 3 3 0 0 0 0 0 0 0 0 Date Outcome GA Total Labor Labor/2nd/3rd Weight Sex Type Anes PTL Dee A1 A5 Name Clin Term Term Term Last Filed Vital Signs Vital Sign Reading Time Taken Comments Blood Pressure 142/88 05/25/2024 8:07 AM EDT Pulse 63 05/25/2024 8:07 AM EDT Temperature 36.8 ??C (98.2 ??F) 05/25/2024 8:07 AM ED T Respiratory Rate 16 03/12/2024 3:28 PM EST Oxygen Saturation - - Inhaled Oxygen Concentration - - Weight 105 kg (232 lb) 05/25/2024 8:07 AM EDT Height 162.6 cm (5' 4 ) 05/25/2024 8:07 AM EDT Body Mass Index 39.82 05/25/2024 8:07 AM EDT Plan of Treatment Upcoming Encounters Date Type Department Care Team (Late st Contact Info) Description 10/12/2024 8:15 AM EDT Office Visit Bariatric Surgery - [address] [place] [phone] Sky Peck MD [address] [facility] [address] [place] [address] 11/26/2024 8:00 AM EDT Office Visit Adult Medicine [facility] [address] [place] [address] Arslan Coleman MD [address] [place] [address] 12/03/2024 7:00 AM EDT Ancillary Procedure [facility] - [facility] [address] [facility] [address] [place] [address] 01/21/2025 3:30 PM EST Office Visit Vascular Surgery - [place] 300 [facility] [address] [place] [address] Dot Rowe PA 300 [facility] [address] [place] [address] Health Maintenance Due Date Last Done Comments Hepatitis B Vaccines (1 of 3 - 19+ 3-dose series) 02/10/1987 Pneumococcal Vaccine: 50+ Years (1 of 1 - PCV) 02/10/2018 Zoster Vaccines (1 of 2) 02/10/2018 Colorectal Cancer Screening: Colonoscopy 01/19/2022 COVID-19 Vaccine ( season) 2023 06/30/2021, 04/02/2020, 03/12/2020 DTaP,Tdap,and Td Vaccines (2 - Td or Tdap) 08/05/2024 08/05/2014 Social Influencers of Health Screening 01/26/2025 01/27/2024 Depression Screening 03/05/2025 03/05/2024, 11/14/19 Breast Cancer Screening 12/19/2025 12/20/19, 11/09/2022, 07/28/2021, Additional history exists Cholesterol Screening (Lipid Panel) 12/27/2028 12/28/2023, 05/09/2023 HIV Screening Completed 09/04/2006 Hepatitis C Screening Completed 09/04/2006 Influenza Vaccine Completed 10/19/2023, , 12/15/2022, Additional history exists HIB Vaccines Aged Out No longer eligi ble based on patient's age to complete this topic HPV Vaccines Aged Out No longer eligi ble based on patient's age to complete this topic Hepatitis A Vaccines Aged Out No long er eligible based on patient's age to complete this topic IPV Vaccines Aged Out No longer eligi ble based on patient's age to complete this topic MMR Vaccines Aged Out No longer eligi ble based on patient's age to complete this topic Meningococcal ACWY Vaccine Aged Out N o longer eligible based on patient's age to complete this topic Meningococcal B Vaccine Aged Out No l onger eligible based on patient's age to complete this topic Pneumococcal Vaccine: Pediatrics (0 to 5 Years) and At-Risk Patients (6 to 64 Years) Aged Out No longer eligible based on patient's age to complete this topic RSV Immunization Patients Under 20 months Aged Out No longer eligible based on patient's age to complete this topic Varicella Vaccines Aged Out No longer eligible based on patient's age to complete this topic Procedures Procedure Name Priority Date/Time Associated Diagnosis Comments ASPARTATE AMINOTRANSFERASE Routine 06/25/2024 12:16 PM EDT Medication monitoring encounter VITAMIN D 25 HYDROXY Routine 06/25/2024 12:16 PM EDT Vitamin D deficiency ALANINE AMINOTRANSFERASE Routine 06/25/2024 12:16 PM EDT Medication monitoring encounter LIPID PANEL WITH REFLEX TO DIRECT LDL Routine 12/28/2023 10:21 AM EST Nontoxic diffuse goiter Mixed hyperlipidemia MG MAMMO DIGITAL SCREENING W DAMON BILAT Routine 12/20/2023 9:34 AM EST Encounter for screening mammogram for breast cancer DEPRESSION SCREENING Routine 11/14/2023 HEPATITIS C SCREENING Routine 09/04/2006 HIV SCREENING Routine 09/04/2006 from Last 3 Months or Most Recently Relevant to Health Maintenance Results * Vitamin D 25 hydroxy (06/25/2024 12:16 PM EDT) Vit D, 25-Hydroxy 30.9 30.0 - 80.0 ng/mL LAB CHEMISTRY METHOD 06/25/2024 7:[address] [facility] Blood Venous blood specimen / Unknown Venipuncture / Unknown 06/25/2024 12:16 PM EDT 06/25/2024 12:16 PM EDT Domi CASTLE LAB BLOOD ORDERABLES Final Re sult [facility] [address] [place] [address], [place] [phone] * Alanine aminotransferase (06/25/2024 12:16 PM EDT) ALT (SGPT) 22 10 - 60 unit/L LAB CHEMISTRY METHOD 06/25/2024 7:[address] [facility] Blood Venous blood specimen / Unknown Venipuncture / Unknown 06/25/2024 12:16 PM EDT 06/25/2024 12:16 PM EDT Kenzie Parr MD LAB BLOOD ORDERABLES Final Result [facility] [address] [place] [address], [place] [phone] * Aspartate aminotransferase (06/25/2024 12:16 PM EDT) AST (SGOT) 21 10 - 42 unit/L LAB CHEMISTRY METHOD 06/25/2024 7:[address] [facility] Blood Venous blood specimen / Unknown Venipuncture / Unknown 06/25/2024 12:16 PM EDT 06/25/2024 12:16 PM EDT us Kenzie Parr MD LAB BLOOD ORDERABLES Final Result [facility] [address] [place] [address], [place] [phone] * (ABNORMAL) Lipid panel with reflex to direct LDL (12/28/2023 10:21 AM EST) Cholesterol 239(H) 0 - 200 mg/dL LAB CHEMISTRY METHOD 12/28/2023 6:[address] [facility] Triglycerides 84 0 - 150 mg/dL LAB CHEMISTRY METHOD 12/28/2023 6:[address] [facility] HDL 73 >=40 mg/dL LAB CHEMISTRY METHOD 12/28/2023 6:[address] [facility] LDL Calculated 149(H) 0 - 100 mg/dL LAB CHEMISTRY METHOD 12/28/2023 6:[address] [facility] VLDL Cholesterol Zhou 16.8 mg/dL LAB CHEMISTRY METHOD 12/28/2023 6:[address] [facility] Non HDL Chol. (LDL+VLDL) 166(H) <145 mg/dL LAB CHEMISTRY METHOD 12/28/2023 6:[address] [facility] Chol/HDL Ratio 3.3 0.0 - 4.4 LAB CHEMISTRY METHOD 12/28/2023 6:[address] [facility] Blood Venous blood specimen / Unknown Venipuncture / Unknown 12/28/2023 10:21 AM EST 12/28/2023 10:21 AM EST Arslan Coleman MD LAB BLOOD ORDERA BLES Final Result [facility] [address] [place] [address], [place] [phone] * MG Mammo Digital Screening w Damon bilat (12/20/2023 9:34 AM EST) Anatomical Region Laterality Modality Breast Bilateral Mammography 12/22/2023 12:1 6 PM EST Impressions 12/22/2023 12:19 PM EST Stable mammographic appearance of the breasts. ??No evidence of malignancy is seen. A negative mammogram in the presence of a clinically suspicious palpable abnormality does not preclude the possibility of malignancy or alter the indications for biopsy. BI-RADS: ??Category 1: Negative RECOMMENDATION(S): 1: Routine screening mammogram BILATERAL in 1 year. Mammo Location: [facility], [address] [place] [address], [id number], . -------- FINAL REPORT -------- Dictated By: Yolanda Melendez Dictated Date: 12/22/2023 12:16 ET Assigned Physician: Yolanda Melendez Reviewed and Electronically Signed By: Yolanda Melendez Signed Date: 12/22/2023 12:19 ET Workstation ID: [id number] Transcribed By: Self Edit Transcribed Date: 12/22/2023 12:16 ET Narrative 12/22/2023 12:19 PM EST EXAM: MAMMO DIGITAL SCREENING W DAMON BILAT EXAM DATE: 12/20/2023 9:22 AM HISTORY: ??Breast cancer screen, avg risk, asymptomatic (Age => 40y) COMPARISON: Mammograms 11/09/2022, 07/28/2021, and 07/22/2020. TECHNIQUE: Bilateral digital breast tomosynthesis was performed in the CC and MLO projections. Computer aided detection with [employer] 3D 3.1 was employed. TISSUE DENSITY: b. There are scattered areas of fibroglandular density. FINDINGS: No suspicious masses, grouped microcalcifications, or areas of architectural distortion are seen. The skin and vascularity are unremarkable. Procedure Note Yolanda Melendez MD - 12/22/2023 EXAM: MAMMO DIGITAL SCREENING W DAMON BILAT EXAM DATE: 12/20/2023 9:22 AM HISTORY: Breast cancer screen, avg risk, asymptomatic (Age => 40y) COMPARISON: Mammograms 11/09/2022, 07/28/2021, and 07/22/2020. TECHNIQUE: Bilateral digital breast tomosynthesis was performed in the CCand MLO projections. Computer aided detection with [employer] 3D 3.1was employed. TISSUE DENSITY: b. There are scattered areas of fibroglandular density. FINDINGS: No suspicious masses, grouped microcalcifications, or areas ofarchitectural distortion are seen. The skin and vascularity areunremarkable. IMPRESSION: Stable mammographic appearance of the breasts. No evidence of malignancyis seen. A negative mammogram in the presence of a clinically suspicious palpableabnormality does not preclude the possibility of malignancy or alter theindications for biopsy. BI-RADS: Category 1: Negative RECOMMENDATION(S): 1: Routine screening mammogram BILATERAL in 1 year. Mammo Location: [facility], [address] [place] [address], [facility], . -------- FINAL REPORT -------- Dictated By: Yolanda Melendez Dictated Date: 12/22/2023 12:16 ET Assigned Physician: Yolanda Melendez Reviewed and Electronically Signed By: Yolanda Melendez Signed Date: 12/22/2023 12:19 ET Workstation ID: [id number] Transcribed By: Self Edit Transcribed Date: 12/22/2023 12:16 ET Arslan Coleman MD [facility] BI PROCEDURE S Final Result * Depression Screening (11/14/2023) Depression Screening abstracted Historical Provider HEALTH MAINTENANCE Final Result * HIV Screening (09/04/2006) Pathologist [facility] HIV Screening abstracted Historical Provider HEALTH MAINTENANCE Final Result * Hepatitis C Screening (09/04/2006) Pathologist [facility] Hepatitis C Screening abstracted Historical Provider HEALTH MAINTENANCE Final Result from Last 3 Months or Most Recently Relevant to Health Maintenance Insurance [facility] [employer] Care Teams Sports Management Intern Relationship Specialty Start Date End Date Arslan Coleman MD [address] [place] [id number] PCP - General Internal Medicine 12/19/23
[2024-07-06 06:33] LABS: Appearance Urine Cloudy; Color Urine Yellow; Glucose Urine UA Negative (Negative); Leukocyte Esterase Urine Small (1+) (Negative); Nitrite Urine Negative (Negative); PH 5.5 (5.0-9.0); Specific Gravity - Urine >= 1.030 (1.005-1.025); UMIC TRIGGER UACC YES; Urine Blood Small (1+) (Negative); Urine Ketones Trace mg/dL (Negative); Urine Protein Trace mg/dL (Neg-Trace)
[2024-07-06 06:39] LABS: MANUAL DIFF FLAG NO
[2024-07-06 06:41] LABS: Basophils Percent Auto 0.7 % (0-2); Eosinophils Absolute Auto 0.2 X10*3/uL (0.0-0.4); Eosinophils Percent Auto 2.8 % (0-4); Hematocrit 40.8 % (37.0-47.0); Hemoglobin 14.2 g/dl (12.0-16.0); Imm Gran Abs Auto 0.02 X10*3/uL (0.00-0.03); Imm Gran Pct Auto 0.3 % (0.0-0.4); Lymphocytes Absolute Auto 1.3 X10*3/uL (1.2-4.9); Lymphocytes Percent Auto 22.2 % (20-40); Mean Corpuscular HGB Conc 34.8 g/dl (31.0-35.0); Mean Corpuscular Hemoglobin 29.3 pg (27.0-33.0); Mean Corpuscular Volume 84.1 fL (80.0-98.0); Mean Platelet Volume 10.5 fL (9.4-12.3); Monocytes Absolute Auto 0.3 X10*3/uL (0.1-1.2); Monocytes Percent Auto 4.3 % (2-11); Neutrophils Absolute Auto 4.2 x10*3/uL (2.0-8.3); Neutrophils Percent Auto 69.7 % (45-73); Platelet Count 243 X10*3/uL (160-400); Red Blood Count 4.85 X10*6/uL (4.20-5.50); Red Cell Distribution Width 12.8 % (11.0-16.0)
[2024-07-06 06:43] LABS: Bacteria Urine 4+ (None Seen); Hyaline Casts Urine 0-2 /LPF (0-2); Squamous Epithelial Cell Urine >20 /HPF (0-2); UACC Culture Trigger YES
[2024-07-06 06:55] LABS: Alanine Aminotransferase 13 U/L (0-31); Albumin Level 4.4 g/dL (3.5-5.0); Alkaline Phosphatase 69 U/L (39-117); Anion Gap 12 (12-20); Aspartate Amino Transferase 19 U/L (5-31); Bilirubin Direct 0.1 mg/dL (0.0-0.5); Bilirubin Total 0.3 mg/dL (0.0-1.0); Blood Urea Nitrogen 16 mg/dL (9-16); Calcium 9.6 mg/dL (8.4-10.2); Carbon Dioxide 26 mmol/L (22-29); Chloride 107 mmol/L (96-108); Creatinine Clr Calc Pharmacy 114.4; Estimated Glomerular Filt Rate > 60; Glucose Random 107 mg/dL (60-115); Lipase 13 U/L (8-78); Potassium 3.8 mmol/L (3.3-5.1); Sodium 141 mmol/L (135-145); Total Protein 7.1 g/dL (6.5-8.0)
--- NOTE | 2024-07-06 07:35 | ED.ABDPAIN ---
HPI - Abdominal Pain General Chief Complaint: Abdominal Pain Stated Complaint: lower back pain Time Seen by Provider: 07/06/24 07:30 Source: patient Mode of arrival: ambulatory Limitations: no limitations History of Present Illness ED Provider: DR. Barros HPI narrative: 54-year-old female who returned to the ED for evaluation of right lower back pain started 10 days ago, patient was evaluated in the ED on 06/30 for same pain head blood workup/urine/CT abdomen pelvis and the workup was largely unremarkable, patient felt better with IV Tylenol, at home patient can not control her pain with oral Tylenol, patient is a former addict and declining taking any narcotic medication to control her pain. No dysuria, no frequency urination, no hematuria, last bowel movement was this morning, passing flatus. Related Data Previous Rx's ?Medication ?Instructions ?Recorded ondansetron 4 mg disintegrating 4 mg PO Q8H PRN nausea and 03/14/22 tablet vomiting #10 tabs pantoprazole 40 mg tablet,delayed 40 mg PO DAILY #10 tabs 03/14/22 release ondansetron 4 mg disintegrating 4 mg PO Q6H PRN nausea and 06/30/24 tablet vomiting #10 tabs nitrofurantoin 100 mg PO Q12H 7 days #14 caps 07/06/24 monohydrate/macrocrystals 100 mg capsule (Macrobid) Allergies Allergy/AdvReac Type Severity Reaction Status Date / Time aspirin [ASPIRIN] Allergy Unknown UNKNOWN Verified 07/06/24 05:58 codeine [CODEINE] Allergy Unknown UNKNOWN Verified 07/06/24 05:58 levofloxacin [From LEVAQUIN] Allergy Unknown UNKNOWN Verified 07/06/24 05:58 Penicillins [PENICILLINS] Allergy Unknown UNKNOWN Verified 07/06/24 05:58 Motrin Allergy Unknown Hives Uncoded 07/06/24 05:58 Review of Systems Review of Systems All other systems are reviewed and are negative Constitutional: Reports as per HPI and Reports no additional constitutional complaints Eyes: Reports as per HPI and Reports no additional eye complaints Reports system reviewed and no additional complaints, except as documented Cardiovascular: Reports as per HPI and Reports no additional cardiovascular complaints Respiratory: Reports as per HPI and Reports no additional respiratory complaints Gastrointestinal: Reports as per HPI and Reports no additional gastrointestinal complaints Genitourinary: Reports no additional female genitourinary complaints Musculoskeletal: Reports no additional musculoskeletal complaints Skin/Breast: Reports system reviewed and no additional complaints, except as docu Psychiatric: Reports no additional psychiatric complaints Endocrine: Reports no additional endocrine complaints Hematologic/Lymphatic: Reports no additional hematologic/lymphatic complaints Allergic/Immunologic: Reports no additional allergic/immunologic complaints Reports system reviewed and no additional complaints, except as documented and Reports Abnormal speech present COUNT INCLUDES [facility] Past Medical History Medical History No known health problems Social History Social History Advance Directives: No Advance Directives Information Provided: Yes Do you have a plan to hurt others: No Plan Patient : No Physical Exam ED Vital Signs: Vital Signs - 24 hr 07/06/24 05:56 07/06/24 08:05 Temperature 97.7 F 99.9 F Pulse Rate 60 60 Respiratory Rate 16 16 Blood Pressure 151/68 H 147/87 H Pulse Oximetry 97 97 Oxygen Delivery Method Room Air Room Air BMI result Body Mass Index 37.8 Vital signs have been reviewed and appear to be correct. Blood pressure elevated. Heart rate normal. Respiratory rate normal. Temperature normal. Oxygen saturation normal. Appearance: Uncomfortable, in apparent distress due to right lower back pain. Alert. Oriented X3. Head: Normal external exam. Normocephalic. Atraumatic. No Cannon signs noted. No raccoon eyes noted Eyes: PERRLA. EOMI. Conjunctiva and sclera normal. Eyelids normal. ENT: TM's Normal. Pharynx normal. Uvula midline. Moist mucous membranes. No trismus noted. No drooling noted. No muffled voice noted. Neck: Normal inspection. Neck supple. FROM. No adenopathy. Thyroid Normal. No meningeal signs. No neck mass noted. CVS: Normal heart rate and rhythm. Heart sound normal. No murmurs noted. Pulses normal throughout. Respiratory: No respiratory distress. Painless inspiration. Breath sounds normal. No wheezes/rales/rhonchi noted. Chest nontender. No accessory muscle usage noted or decreased air movement noted. Abdomen: Soft and nontender. Bowel sounds normal in all 4 quadrants. No distention noted. No organomegaly noted. No visible injury noted. Back: No CVA tenderness. Tenderness over the right sacroiliac joint. Skin: Skin warm and dry. Normal skin color. Normal skin turgor. No rashes/lesions/lacerations noted. Extremities: No lower extremity edema. Extremities exhibit normal range of motion. Extremities nontender. Neuro: Oriented X 3. Cranial nerve exam: II-XII are grossly intact No motor deficit. No sensory deficit. Reflexes normal. Course Reevaluation(s) Reevaluation #1: Right sacroiliac pain radiating to the right groin area, had a CT abdomen pelvis on 06/30 shows no acute pathology, physical exam is consistent with sacroiliac joint pain, patient was instructed to continue with Tylenol, Urine is showing mild UTI will start on Macrobid. Time: 09:21 Reevaluation #2: Patient adamantly requests repeat abdomen pelvis CT since she is developing new symptoms of pressure in her lower abdomen, CT abdomen pelvis showed no acute pathology. Will continue with current plan of discharge. Time: 10:20 Medical Decision Making Differential Diagnosis Differential Diagnoses: The differential diagnosis associated with the presentation includes (Sacroiliac joint arthritis, UTI, kidney.) Admission/Observation Consideration of admission/observation: Escalation of care including admission/observation considered Lab Data MDM Lab Attestation statement: I reviewed the patient's lab results. 07/06/24 06:35 07/06/24 06:35 Labs: Lab Results 07/06/24 07/06/24 Range/Units 06:22 06:35 WBC 6.0 (4.8-10.8) X10*3/uL RBC 4.85 (4.20-5.50) X10*6/uL Hgb 14.2 (12.0-16.0) g/dl Hct 40.8 (37.0-47.0) % MCV 84.1 (80.0-98.0) fL MCH 29.3 (27.0-33.0) pg MCHC 34.8 (31.0-35.0) g/dl RDW 12.8 (11.0-16.0) % Plt Count 243 (160-400) X10*3/uL MPV 10.5 (9.4-12.3) fL Immature Gran % (Auto) 0.3 (0.0-0.4) % Neut % (Auto) 69.7 (45-73) % Lymph % (Auto) 22.2 (20-40) % [place] % (Auto) 4.3 (2-11) % Eos % (Auto) 2.8 (0-4) % Baso % (Auto) 0.7 (0-2) % Lymph # (Auto) 1.3 (1.2-4.9) X10*3/uL [place] # (Auto) 0.3 (0.1-1.2) X10*3/uL Eos # (Auto) 0.2 (0.0-0.4) X10*3/uL Baso # (Auto) 0.0 (0.0-0.2) X10*3/uL Abs Immat Gran (auto) 0.02 (0.00-0.03) X10*3/uL Absolute Neuts (auto) 4.2 (2.0-8.3) x10*3/uL Absolute Nucleated RBC 0.000 (0.0-0.012) X10*3/uL Nucleated RBC % (auto) 0.0 (0.0-0.2) /100WBC Sodium 141 (135-145) mmol/L Potassium 3.8 (3.3-5.1) mmol/L Chloride 107 (96-108) mmol/L Carbon Dioxide 26 (22-29) mmol/L Anion Gap 12 (12-20) BUN 16 (9-16) mg/dL Creatinine 0.63 (0.5-1.4) mg/dL Estim Creat Clear Calc 114.4 Estimated GFR > 60 Random Glucose 107 (60-115) mg/dL Calcium 9.6 (8.4-10.2) mg/dL Total Bilirubin 0.3 (0.0-1.0) mg/dL Direct Bilirubin 0.1 (0.0-0.5) mg/dL AST 19 (5-31) U/L ALT 13 (0-31) U/L Alkaline Phosphatase 69 (39-117) U/L Total Protein 7.1 (6.5-8.0) g/dL Albumin 4.4 (3.5-5.0) g/dL Lipase 13 (8-78) U/L Urine Color Yellow Urine Appearance Cloudy Urine pH 5.5 (5.0-9.0) Ur Specific [place] >= 1.030 H (1.005-1.025) Urine Protein Trace (Neg-Trace) mg/dL Urine Glucose (UA) Negative (Negative) mg/dL Urine Ketones Trace (Negative) mg/dL Urine Blood Small (1+) H (Negative) Urine Nitrite Negative (Negative) Ur Leukocyte Esterase Small (1+) H (Negative) Urine RBC 3-5 H (0-2) /HPF Urine WBC 6-10 H (0-5) /HPF Ur Squamous Epith Cells >20 (0-2) /HPF Urine Bacteria 4+ (None Seen) Hyaline Casts 0-2 (0-2) /LPF Medications Administered Discontinued Medications Generic Name Dose Route Start Last Admin Trade Name Freq PRN Reason Stop Dose Admin Acetaminophen 1,000 mg in 100 mls @ 400 mls/hr 07/06/24 07:34 07/06/24 09:37 Ofirmev IV 07/06/24 07:48 Infused ONCE ONE Infusion Discharge Plan Discharge Clinical Impression: Sacroiliitis, UTI (urinary tract infection) Patient Disposition: Home, Self-Care Instructions: Urinary Tract Infection in Women (ED), Sacroiliitis (ED) Prescriptions: New nitrofurantoin monohyd/m-cryst [Macrobid] 100 mg capsule 100 mg PO Q12H 7 Days Qty: 14 0RF Rx Instructions: must administer with a meal/food No Action ondansetron 4 mg tablet,disintegrating 4 mg PO Q8H PRN (Reason: nausea and vomiting) Qty: 10 0RF pantoprazole 40 mg tablet,delayed release (DR/EC) 40 mg PO DAILY Qty: 10 0RF ondansetron 4 mg tablet,disintegrating 4 mg PO Q6H PRN (Reason: nausea and vomiting) Qty: 10 0RF Referrals: Arslan Coleman MD [Primary Care Provider] - Print Language: [place]
[2024-07-06 08:05] VITALS: BP 147/87; PULSE 60; RESP 16; TEMP 37.7; O2SAT 97
[2024-07-06] MEDS: Acetaminophen 1,000 MG/100 ML PIGGYBACK 400 MG IV (08:23)
[2024-07-06] MEDS: Nitrofurantoin Monohyd/M-Cryst 100 MG CAPSULE PO (10:35)
[2024-07-06] MEDS: ondansetron HCL 4 MG/2 ML VIAL IVPUSH (10:36)
[2024-07-06 10:42] VITALS: BP 123/73; PULSE 55; RESP 18; TEMP 36.5; O2SAT 96
[2024-07-06 11:01] VITALS: BP 123/73; PULSE 55; RESP 18; TEMP 36.5; O2SAT 96
== END 2024-07-06 11:02 | disposition home or self-care (01) ==
PROVIDERS: Emergency Provider Emergency Medicine; PCP Family Medicine
DX: N39.0 Urinary tract infection, site not specified (principal); M54.50 Low back pain, unspecified; M46.1 Sacroiliitis, not elsewhere classified; R10.2 Pelvic and perineal pain; Z79.899 Other long term (current) drug therapy
CPT/HCPCS: 36415; 74176; 80053; 81001; 82248; 83690; 85025; 87086; 96365; 96375; 99284; 99285; J0131; J2405

== ENCOUNTER → 2024-07-06 09:33 | Outpatient (BNV) | payer OTHER, SELFPAY | PROVIDERS: Emergency Provider Emergency Medicine; PCP Family Medicine; Visit Provider Radiology Diagnostic Radiology | DX: R10.9 Unspecified abdominal pain (principal) | CPT/HCPCS: 74176 ==